=== PATIENT | female | born 1985 | race Caucasian/White ===

== ENCOUNTER 2016-07-06 08:27 | Emergency (ER) | payer OTHER ==
[~2016-07-06] VITALS: Ht 172.7 cm; Wt 69.8 kg
[~2016-07-06 08:27] MED LIST: ADVAIR 250/501 DISK IH; BENZONATATE100 MG PO; CEFDINIR300 MG PO; CETIRIZINE HCL10 M2 PO; FLEXERIL10 MG PO; HYDROCODON-ACE1 EAC7 PO; LEVOTHYROXINE75 MCG PO; NABUMETONE500 MG PO; NAPROSYN500 MG PO; PREDNISONE10 MG PO; PROAIR HFA8.5 GM IH; ZOFRAN8 MG PO; ZYRTEC10 M2 PO
[2016-07-06 09:21] LABS: EOSINOPHIL (%) 0 % (0-5); HEMATOCRIT 38.1 % (36.0-46.0); IMMATURE GRANULOCYTE (%) 0.4 % (0.0-0.7); INSTRUMENT ABS NEUTROPHIL CT 3.5 K/uL; LYMPHOCYTE COUNT 1.6 K/uL (1.0-2.8); MCH 31.2 PG (29.0-34.0); MCHC 34.1 G/DL (30.0-36.0); MCV 91.4 FL (83-99); MEAN PLAT.VOLUME 10.5 uM^3 (9.5-12.4); MONOCYTE (%) 7.7 % (3-12); MONOCYTE COUNT 0.4 K/uL (0-0.8); NEUTROPHIL COUNT 3.5 K/uL (1.8-6.4); PLATELET COUNT 201 K/uL (156-360); RBC DIS.WIDTH-CV 12.4 % (11.8-14.6); RBC DIS.WIDTH-SD 41.1 % (39-53); RED BLOOD COUNT 4.17 M/uL (3.80-5.20); WHITE BLOOD COUNT 5.6 K/uL (4.1-10.2)
[2016-07-06 09:41] LABS: CHLORIDE 114 mEq/L (99-109); POTASSIUM 3.4 mEq/L (3.7-5.4); SODIUM 145 mEq/L (136-147)
[2016-07-06 09:43] LABS: GLUCOSE 86 mg/dL (70-99)
[2016-07-06 09:44] LABS: ANION GAP 10 MEQ/L (2-14)
[2016-07-06 09:45] LABS: TOTAL BILIRUBIN 1.3 mg/dL (0.0-1.0)
[2016-07-06 09:46] LABS: ALKALINE PHOSPHATASE 37 IU/L (3-129)
[2016-07-06 09:47] LABS: GFR ESTIMATE (CALCULATED) > 59 mL/min/
[2016-07-06 09:48] LABS: UREA NITROGEN (BUN) 8 mg/dL (9-23)
[2016-07-06 10:37] LABS: INTERNAL CONTROL VALID? YES
[2016-07-06 11:04] LABS: C DIFF TOXIN NEGATIVE (NEGATIVE); PROBE CHECK PASS; SPECIMEN PROCESSING CONTROL PASS
[2016-07-06] MEDS ORDERED: LOMOTIL TABLET1 EACH PO (12:22)
[2016-07-06] MEDS ORDERED: ZOFRAN ODT4 MG PO (12:22)
[2016-07-06 12:37] VITALS: BP 107/59
== END 2016-07-06 12:38 | disposition home or self-care (01) ==
LOC: EME 08:27
PROVIDERS: Emergency Medicine
DX: R19.7 Diarrhea, unspecified (principal); R42 Dizziness and giddiness; R10.32 Left lower quadrant pain; R11.0 Nausea; R63.4 Abnormal weight loss; Z68.23 Body mass index [BMI] 23.0-23.9, adult; Z90.49 Acquired absence of other specified parts of digestive tract
CPT/HCPCS: 80053; 83630; 85025; 87493; 99281; 99285; J2405; J7030

== ENCOUNTER 2016-12-18 01:48 | Emergency (ER) | payer SELFPAY ==
[~2016-12-18] VITALS: Ht 172.7 cm; Wt 61.3 kg
[~2016-12-18 01:48] MED LIST changes: +LOMOTIL TABLET1 EACH PO; +ZOFRAN ODT4 MG PO
[2016-12-18 02:34] LABS: EOSINOPHIL (%) 0.1 % (0-5); HEMATOCRIT 39.8 % (36.0-46.0); IMMATURE GRANULOCYTE (%) 0.3 % (0.0-0.7); INSTRUMENT ABS NEUTROPHIL CT 7.9 K/uL; LYMPHOCYTE COUNT 2.3 K/uL (1.0-2.8); MCH 31.5 PG (29.0-34.0); MCHC 33.7 G/DL (30.0-36.0); MCV 93.4 FL (83-99); MEAN PLAT.VOLUME 10.4 uM^3 (9.5-12.4); MONOCYTE (%) 4.8 % (3-12); MONOCYTE COUNT 0.5 K/uL (0-0.8); NEUTROPHIL (%) 73.2 % (45-76); NEUTROPHIL COUNT 7.9 K/uL (1.8-6.4); PLATELET COUNT 226 K/uL (156-360); RBC DIS.WIDTH-SD 41.4 % (39-53); RED BLOOD COUNT 4.26 M/uL (3.80-5.20); WHITE BLOOD COUNT 10.8 K/uL (4.1-10.2)
[2016-12-18 02:42] LABS: CHLORIDE 110 mEq/L (99-109); POTASSIUM 3.3 mEq/L (3.7-5.4); SODIUM 142 mEq/L (136-147)
[2016-12-18 02:44] LABS: GLUCOSE 106 mg/dL (70-99)
[2016-12-18 02:45] LABS: ANION GAP 11 MEQ/L (2-14)
[2016-12-18 02:46] LABS: D-DIMER ELISA < 150.00 ng/mLDDU (<230); TOTAL BILIRUBIN 0.7 mg/dL (0.0-1.0)
[2016-12-18 02:47] LABS: SERUM ETHYL ALCOHOL 170 mg/dL
[2016-12-18 02:48] LABS: ALKALINE PHOSPHATASE 50 IU/L (3-129); GFR ESTIMATE (CALCULATED) > 59 mL/min/
[2016-12-18 02:50] LABS: UREA NITROGEN (BUN) 9 mg/dL (9-23)
[2016-12-18 02:51] LABS: SALICYLATE < 5.0 MG/DL (15-30)
[2016-12-18 02:52] LABS: LIPASE 37 U/L (1.0-51.0)
[2016-12-18] MEDS ORDERED: ZOFRAN4 MG PO (04:21)
[2016-12-18 04:49] LABS: ADD MIUA? NO; BILIRUBIN NEGATIVE; BLOOD NEGATIVE; COLOR STRAW ((YELLOW)); GLUCOSE (STRIP) NEGATIVE; KETONES NEGATIVE; LEUKOCYTES NEGATIVE; NITRITE NEGATIVE; PROTEIN (STRIP) NEGATIVE; SPECIFIC GRAVITY 1.008 (1.000-1.030); UCUL ADDED? NO; UROBILINOGEN 0.2 MG/DL (0.2-1.0)
[2016-12-18 04:51] LABS: QUANTITATIVE HCG < 4.0 MIU/ML
[2016-12-18 04:59] VITALS: BP 125/83
[2016-12-18 05:02] LABS: AMPHETAMINE NEGATIVE (500 ng/mL); BARBITURATES NEGATIVE (200 ng/mL); BENZODIAZEPINES NEGATIVE (150 ng/mL); COCAINE NEGATIVE (150 ng/mL); INTERNAL CONTROLS VALID? YES; METHADONE NEGATIVE (200 ng/mL); METHAMPHETAMINE NEGATIVE (500 ng/mL); OPIATES (MORPHINE) NEGATIVE (100 ng/mL); OXYCODONE NEGATIVE (100 ng/mL); PHENCYCLIDINE NEGATIVE (25 ng/mL); PROPOXYPHENE NEGATIVE (300 ng/mL); THC CANNABINOIDS NEGATIVE (50 ng/mL); TRICYCLIC ANTIDEPRESSANTS NEGATIVE (300 ng/mL)
== END 2016-12-18 05:00 | disposition home or self-care (01) ==
LOC: EME 01:48
PROVIDERS: Physician Assistant
DX: F10.129 Alcohol abuse with intoxication, unspecified (principal); Y90.6 Blood alcohol level of 120-199 mg/100 ml; R07.9 Chest pain, unspecified; J45.909 Unspecified asthma, uncomplicated; Z86.73 Personal history of transient ischemic attack (TIA), and cerebral infarction without residual deficits; Z88.2 Allergy status to sulfonamides; Z88.5 Allergy status to narcotic agent
CPT/HCPCS: 71020; 80053; 81003; 83690; 84702; 85025; 85379; 93005; 99281; 99285; G0480; J2405; J7030; S0028